=== PATIENT | male | born 1960 | race Caucasian/White ===

== ENCOUNTER 2017-06-22 11:03 | Inpatient (IN) | payer OTHER ==
[2017-06-22 11:10] VITALS: BMI 29.0
--- NOTE | 2017-06-22 14:13 | HP ---
COWS - Scale Resting Pulse: 0= [place] 80 or Below Sweatin=Flushed/Facial Moisture Restless Observation: 1= Difficult to Sit Still Pupil Size: 1= Pupils >than Normal Bone or Joint Aches: 2= Severe Diffuse Aches Runny Nose/ Eye Tearin= None GI Upset > 30mins: 2= Nausea/Diarrhea Tremor Observation: 2= Slight Tremor Visible Yawning Observation: 0= None Anxiety or Irritability: 2=Irritable/Anxious Goose Flesh Skin: 0=Smooth Skin COWS Score: 12 CIWA Score - CIWA Score Nausea/Vomitin Muscle Tremors: 2 Anxiety: 3 Agitation: 1-Slight > Activity Paroxysmal Sweats: 2 Orientation: 1-Uncertain about Date Tacttile Disturbances: 1-Very Mild Itch/Numbness Auditory Disturbances: 1-Very Mild Visual Disturbances: 0-None Headache: 0-None Present CIWA-Ar Total Score: 13 Admission [facility] Chief Complaint: ETOH/Heroin withdrawal symptoms. Allergies/Adverse Reactions: Allergies Allergy/AdvReac Type Severity Reaction Status Date / Time No Known Allergies Allergy Verified 06/22/17 11:56 History of Present Illness: Pt presents with ETOH/Heroin withdrawal symptoms. Pt started using heroin/ETOH/ cocaine at 31 years old when he moved to [place]. Sniffs 6-7 bags of heroin daily- , sniffs 2 gram of cocaine daily, and 2 Pints of vodka daily. Currently in [facility] with [facility]. Reports dose of methadone 45mg. Was dosed today. Still pending verification. Has history of asthma, anxiety and depression. Denies having seizures from ETOH use/withdrawal. Last dose of heroin, cocaine and ETOH at 3am. Attempted detox years ago but unsure where. Denies SI/HI and suicide attempts. Feels depressed due to loss of one year ago. Exam Limitations: No Limitations - Ebola screening Have you traveled outside of the country in the last 21 days: No Have you had contact with anyone from an Ebola affected area: No Have you been sick,other than usual withdrawal symptoms: No Do you have a fever: No - Review of Systems Constitutional: Night Sweats, Changes in sleep, Unexplained wgt Loss EENT: reports: No Symptoms Reported Respiratory: reports: No Symptoms reported Cardiac: reports: No Symptoms Reported GI: reports: Diarrhea, Nausea, Poor Fluid Intake, Abdominal cramping : reports: No Symptoms Reported Musculoskeletal: reports: Back Pain, Joint Pain, Muscle Pain Integumentary: reports: Flushing, Sweating Neuro: reports: Numbness, Tremors Endocrine: reports: Unexplained Weight Loss Hematology: reports: No Symptoms Reported Psychiatric: reports: Anxious, Depressed Patient History - Patient Medical History Hx Anemia: No Hx Asthma: Yes Hx Chronic Obstructive Pulmonary Disease (COPD): No Hx Cancer: No Hx Cardiac Disorders: No Hx Congestive Heart Failure: No Hx Hypertension: No Hx Hypercholesterolemia: No Hx Pacemaker: No HX Cerebrovascular Accident: No Hx Seizures: No Hx Dementia: No Hx Diabetes: No Hx Gastrointestinal Disorders: No Hx Liver Disease: No Hx Genitourinary Disorders: No Hx Sexually Transmitted Disorders: No Hx Renal Disease (ESRD): No Hx Thyroid Disease: No Hx Human Immunodeficiency Virus (HIV): No Hx Hepatitis C: No Hx Depression: Yes Hx Suicide Attempt: No Hx Bipolar Disorder: No Hx Schizophrenia: No - Patient Surgical History Past Surgical History: No Hx Neurologic Surgery: No Hx Cataract Extraction: No Hx Cardiac Surgery: No Hx Lung Surgery: No Hx Breast Surgery: No Hx Breast Biopsy: No Hx Abdominal Surgery: No Hx Appendectomy: No Hx Cholecystectomy: No Hx Genitourinary Surgery: No Hx Section: No Hx Orthopedic Surgery: No Anesthesia Reaction: No - PPD History Previous Implant?: Yes Documented Results: Negative w/o proof Implanted On Prior R Admission?: No PPD to be Administered?: Yes - Reproductive History Patient : No - Smoking Cessation Smoking history: Never smoked - Substances Abused Cocaine Route: Inhalation Frequency: Daily Amount used: 1-2 GRAMS DAILY ($100) Age of first use: 39 Date of Last Use: 06/21/17 Heroin Route: Inhalation Frequency: Daily Amount used: 5 BAGS DAILY Age of first use: 39 Date of Last Use: 06/21/17 Alcohol Route: Oral Frequency: Daily Amount used: 2 BOTTLES DAILY (VODKA) Age of first use: 18 Date of Last Use: 06/22/17 Crack Route: Inhalation Frequency: Daily Amount used: 3-4 GRAMS DAILY Age of first use: 39 Date of Last Use: 06/21/17 Family Disease History - Family Disease History Family History: Denies Admission Physical Exam BHS - Vital Signs Vital Signs: Vital Signs - 24 hr 06/22/17 11:08 Temperature 97.4 F L Pulse Rate 65 Respiratory 18 Rate Blood Pressure 125/75 - Physical General Appearance: Yes: Disheveled, Sweating, Anxious HEENTM: Yes: EOMI, Hearing grossly Normal, Normocephalic, LINNEA, Pharynx Normal Respiratory: Yes: Chest Non-Tender, Lungs Clear, Normal Breath Sounds, No Respiratory Distress, No Accessory Muscle Use Neck: Yes: Within Normal Limits, No masses,lesions,Nodules, Supple Breast: Yes: Breast Exam Deferred Cardiology: Yes: Regular Rhythm, Regular Rate, S1, S2 Abdominal: Yes: Normal Bowel Sounds, Non Tender, Soft Genitourinary: Yes: Within Normal Limits Back: Yes: Muscle Spasm Musculoskeletal: Yes: Gait Steady, Back pain, Muscle Pain Extremities: Yes: Tremors Neurological: Yes: sample driller II-XII NML intact, Alert, Disoriented (forgetful with month), Depressed Affect Integumentary: Yes: Warm, Erythema, Moist Lymphatic: Yes: Within Normal Limits - Diagnostic (1) Alcohol dependence with uncomplicated withdrawal Current Visit: Yes Status: Acute (2) Uncomplicated opioid dependence Current Visit: Yes Status: Acute (3) Opioid dependence with withdrawal Current Visit: Yes Status: Acute (4) Asthma Current Visit: Yes Status: Acute Qualifiers: Asthma complication type: unspecified (5) Cocaine dependence Current Visit: Yes Status: Acute Qualifiers: Substance use status: with unspecified cocaine-induced disorder Qualified Code(s): F14.29 - Cocaine dependence with unspecified cocaine-induced disorder (6) Depressed affect Current Visit: Yes Status: Acute (7) Anxiety Current Visit: Yes Status: Acute Cleared for Admission [facility] - Detox or Rehab [facility] Level of Care: Medically Managed Detox Regimen/Protocol: Librium [facility] Breath Alcohol Content Breath Alcohol Content: 0 Urine Drug Screen - Results Drug Screen Negative: No Urine Drug Screen Results: ELAN-Cocaine, OPI-Opiates, MTD-Methadone Inpatient Rehab Admission - Initial Determination Are CD services needed?: Yes Free of communicable disease: Yes Not in need of hospitalization: Yes - Rehab Admission Criteria Previous failed treatment: Yes Poor recovery environment: Yes Comorbidities: Yes Lacks judgement: Yes
[2017-06-22] MEDS ORDERED: MAGNESIUM HYDROX 2400MG/30ML ORAL SUSPENSION 30 ML CUP PO PRN (14:24)
[2017-06-22] MEDS ORDERED: hydrOXYzine PAMOATE 50 MG CAPSULE (FP) PO PRN (14:24)
[2017-06-22] MEDS ORDERED: MAG HYDROX/AL HYDROX/SIMETH 30 ML UNIT-DOSE CUP PO PRN (14:24)
[2017-06-22] MEDS ORDERED: P-EPHED 60MG/TRIPROLIDI 2.5MG TABLET PO PRN (14:24)
[2017-06-22] MEDS ORDERED: MENTHOL/PHENOL 1 EACH UD MM PRN (14:24)
[2017-06-22] MEDS ORDERED: LOPERAMIDE HCL 2 MG CAPSULE PO PRN (14:24)
[2017-06-22] MEDS ORDERED: guaiFENesin/D-METHORPHAN HB 10 ML UNIT-DOSE CUPS PO PRN (14:24)
[2017-06-22] MEDS ORDERED: MAGNESIUM CITRATE 300 ML BOTTLE PO PRN (14:24)
[2017-06-22] MEDS ORDERED: chlordiazePOXIDE HCL 25 MG CAPSULE PO PRN (14:27)
[2017-06-22] MEDS ORDERED: ALBUTEROL SO4 18 GM HFA INHALER IH PRN (14:27)
[2017-06-22] MEDS ORDERED: chlordiazePOXIDE HCL 25 MG CAPSULE PO ONE (14:50)
[2017-06-22] MEDS: chlordiazePOXIDE HCL 25 MG CAPSULE PO SCH ×2 (17:37→22:35)
--- NOTE | 2017-06-22 18:26 | CONSULT ---
[facility] Psychiatric Consult - Data Date of interview: 06/22/17 Admission source: [facility] Identifying data: First admission to [facility] for this 56 y/o male seeking detox treatment on for alcohol,heroin and cocaine (crack) dependence.Patient is ,a father of twelve,homeless,unemployed and supported on SSI benefits. Substance Abuse History: Confirmed by patient in this session.Details in current [facility] report : Smoking history: Never smoked. - Substances Abused. Cocaine. Route: Inhalation. Frequency: Daily. Amount used: 1-2 GRAMS DAILY ($ 100). Age of first use: 39. Date of Last Use: 06/21/17. Heroin. Route: Inhalation. Frequency: Daily. Amount used: 5 BAGS DAILY. Age of first use: 39. Date of Last Use: 06/21/17. Alcohol. Route: Oral. Frequency: Daily. Amount used: 2 BOTTLES DAILY (VODKA). Age of first use: 18. Date of Last Use: 06/22/17. Crack. Route: Inhalation. Frequency: Daily. Amount used: 3-4 GRAMS DAILY. Age of first use: 39. Date of Last Use: 06/21/17 Medical History: Bronchial asthma. Psychiatric History: Patient admits to a history of two hospitalizations ( [facility]).Diagnosed with Bipolar Disorder.Prescribed seroquel 50 mg/hs + ambien 10 mg/hs.Mr Elizabeth is currently on methadone maintenance at [facility] (45 mg/day) in the [place].Patient denies history of suicide attempts. Physical/Sexual Abuse/Trauma History: Patient denies. Additional Comment: Urine Drug Screen Results: ELAN-Cocaine, OPI-Opiates, MTD- Methadone.Noted. Mental Status Exam - Mental Status Exam Alert and Oriented to: Time, Place, Person Cognitive Function: Good Patient Appearance: Well Groomed Mood: Nervous, Withdrawn Affect: Mood Congruent Patient Behavior: Fatigued, Appropriate, Cooperative Speech Pattern: Clear, Appropriate Voice Loudness: Normal Thought Process: Intact, Goal Oriented Thought Disorder: Not Present Hallucinations: Denies Suicidal Ideation: Denies Homicidal Ideation: Denies Insight/Judgement: Poor Sleep: Poorly, Difficulty falling asleep Appetite: Good Muscle strength/Tone: Normal Gait/Station: Normal Psychiatric Findings - Problem List ([place] 1, 2,3) (1) Opioid dependence with withdrawal Current Visit: Yes Status: Acute (2) Alcohol dependence with uncomplicated withdrawal Current Visit: Yes Status: Acute (3) Cocaine dependence Current Visit: Yes Status: Acute Qualifiers: Substance use status: with unspecified cocaine-induced disorder Qualified Code(s): F14.29 - Cocaine dependence with unspecified cocaine-induced disorder (4) Substance induced mood disorder Current Visit: Yes Status: Acute (5) Insomnia Current Visit: Yes Status: Acute - Initial Treatment Plan Initial Treatment Plan: Psychoeducation.Sleep hygiene.Detoxification in progress.Medications : seroquel 50 mg po hs.Zolpidem is withdrawn (for the time being).Side effects/benefits of seroquel discussed with the patient.Mr Elizabeth is agreeable to this careplan.Observation.
[2017-06-22 18:39] LABS: URINE APPEARANCE TURBID; URINE BILIRUBIN NEGATIVE (<2.0 mg/dL); URINE BLOOD 1+ (NEGATIVE); URINE COLOR AMBER; URINE GLUCOSE (UA) NEGATIVE (NEGATIVE); URINE KETONE NEGATIVE (NEGATIVE); URINE LEUK ESTERASE NEGATIVE (NEGATIVE); URINE NITRITE NEGATIVE (NEGATIVE); URINE PROTEIN NEGATIVE (NEGATIVE); URINE UROBILINOGEN NEGATIVE mg/dL (0.2-1.0)
[2017-06-22 19:20] LABS: EPI CELLS RARE /HPF (FEW); URINE BACTERIA RARE /hpf (NONE SEEN); URINE MUCUS FEW
[2017-06-22] MEDS ORDERED: MELATONIN 5 MG TABLETS PO PRN (22:00)
[2017-06-22] MEDS: THIAMINE HCL 100 MG TABLET (FP) PO SCH (22:35)
[2017-06-22] MEDS: QUEtiapine FUMARATE 50 MG TABLET PO SCH (22:35)
[2017-06-23] MEDS: chlordiazePOXIDE HCL 25 MG CAPSULE PO SCH ×4 (05:48→22:28)
[2017-06-23] MEDS ORDERED: METHADONE HCL 40 MG DISPERSABLE TABLET PO SCH (09:30)
--- NOTE | 2017-06-23 09:52 | EKG ---
Test Reason : Blood Pressure : / mmHG Vent. Rate : 063 BPM Atrial Rate : 063 BPM P-R Int : 128 ms QRS Dur : 084 ms QT Int : 406 ms P-R-T Axes : 070 047 040 degrees QTc Int : 415 ms NORMAL SINUS RHYTHM NORMAL ECG NO PREVIOUS ECGS AVAILABLE Confirmed by NAOMY MENDOZA, MILDRED ([id number]) on 06/23/2017 9:51:47 AM Referred By: Confirmed By:MILDRED MORALEZ MD
[2017-06-23] MEDS ORDERED: METHADONE HCL 10 MG TABLET PO SCH (10:00)
[2017-06-23 10:04] LABS: HEMATOCRIT 41.9 % (35.4-49); HEMOGLOBIN 14.2 GM/dL (11.7-16.9); MCH 32.3 pg (25.7-33.7); MEAN PLT VOLUME 9.3 fl (7.5-11.1); PLATELET COUNT 219 K/MM3 (134-434); RBC 4.41 M/mm3 (4.00-5.60); RDW 13.4 % (11.9-15.9); WHITE BLOOD COUNT 7.6 K/mm3 (4.0-10.0)
[2017-06-23 10:20] LABS: ALBUMIN 4.1 g/dl (3.4-5.0); ANION GAP 4 (8-16); BILIRUBIN,TOTAL 0.4 mg/dL (0.2-1.0); BLOOD UREA NITROGEN 16 mg/dL (7-18); CALCIUM 8.8 mg/dL (8.5-10.1); CHLORIDE 104 mmol/L (98-107); CO2 32 mmol/L (21-32); CREATININE 0.8 mg/dL (0.7-1.3); GLUCOSE,RANDOM 76 mg/dL (74-106); POTASSIUM 4.2 mmol/L (3.5-5.1); SGOT/AST 19 U/L (15-37); SGPT/ALT 22 U/L (12-78); SODIUM 140 mmol/L (136-145); TOT PROT 7.2 g/dl (6.4-8.2)
[2017-06-23 10:21] LABS: ALK PHOS 67 U/L (45-117)
[2017-06-23] MEDS ORDERED: METHADONE HCL 40 MG DISPERSABLE TABLET ONE (11:24)
[2017-06-23] MEDS ORDERED: METHADONE HCL 5 MG TABLET ONE (11:24)
[2017-06-23] MEDS: METHADONE 40 MG, METHADONE 5 MG PO SCH (11:26)
[2017-06-23] MEDS: PRENATAL VITAMINS W/ FOLIC ACID TABLET (FP) PO SCH (11:27)
--- NOTE | 2017-06-23 14:31 | PN ---
[facility] CIWA - CIWA Score Nausea/Vomitin-No Nausea/No Vomiting Muscle Tremors: 2 Anxiety: 4-Mod. Anxious/Guarded Agitation: 4-Moderately Restless Paroxysmal Sweats: 3 Orientation: 0-Oriented Tacttile Disturbances: 2-Mild Itch/Numbness/Burn Auditory Disturbances: 0-None Visual Disturbances: 2-Mild Sensitivity Headache: 0-None Present CIWA-Ar Total Score: 17 S COWS - Scale Resting Pulse: 0= [place] 80 or Below Sweatin= Chills/Flushing Restless Observation: 1= Difficult to Sit Still Pupil Size: 0= Normal to Room Light Bone or Joint Aches: 0= None Runny Nose/ Eye Tearin= None GI Upset > 30mins: 1= Stomach Cramp Tremor Observation of Outstretched Hands: 2= Slight Tremor Visible Yawning Observation: 1= 1-2x During Session Anxiety or Irritability: 2=Irritable/Anxious Goose Flesh Skin: 3=Piloerection COWS Score: 11 S Progress Note (SOAP) Subjective: Fatigue, Sweating, Anxious. Objective: PATIENT A & O X 3, OBSERVED AMBULATING ON UNIT. NO ACUTE DISTRESS. 06/23/17 14:32 Vital Signs Temperature 96.1 F L 06/23/17 14:09 Pulse Rate 75 06/23/17 14:09 Respiratory Rate 18 06/23/17 14:09 Blood Pressure 116/69 06/23/17 14:09 O2 Sat by Pulse Oximetry (%) Laboratory Tests 06/22/17 06/23/17 06/23/17 15:00 06:00 06:00 WBC 7.6 RBC 4.41 Hgb 14.2 Hct 41.9 MCV 95.0 MCH 32.3 MCHC 34.0 RDW 13.4 Plt Count 219 MPV 9.3 Sodium 140 Potassium 4.2 Chloride 104 Carbon Dioxide 32 Anion Gap 4 L BUN 16 Creatinine 0.8 Creat Clearance w eGFR > 60 Random Glucose 76 Calcium 8.8 Total Bilirubin 0.4 AST 19 ALT 22 Alkaline Phosphatase 67 Total Protein 7.2 Albumin 4.1 Urine Color Trina Urine Appearance Turbid Urine pH 5.0 Ur Specific [place] 1.024 Urine Protein Negative Urine Glucose (UA) Negative Urine Ketones Negative Urine Blood 1+ H Urine Nitrite Negative Urine Bilirubin Negative Urine Urobilinogen Negative Ur Leukocyte Esterase Negative Urine WBC (Auto) 2 Urine RBC (Auto) 2 Ur Epithelial Cells Rare Urine Bacteria Rare Urine Mucus Few RPR Titer HIV 1&2 Antibody Screen HIV P24 Antigen 06/23/17 06/23/17 06:00 06:00 WBC RBC Hgb Hct MCV MCH MCHC RDW Plt Count MPV Sodium Potassium Chloride Carbon Dioxide Anion Gap BUN Creatinine Creat Clearance w eGFR Random Glucose Calcium Total Bilirubin AST ALT Alkaline Phosphatase Total Protein Albumin Urine Color Urine Appearance Urine pH Ur Specific [place] Urine Protein Urine Glucose (UA) Urine Ketones Urine Blood Urine Nitrite Urine Bilirubin Urine Urobilinogen Ur Leukocyte Esterase Urine WBC (Auto) Urine RBC (Auto) Ur Epithelial Cells Urine Bacteria Urine Mucus RPR Titer Nonreactive HIV 1&2 Antibody Screen Negative HIV P24 Antigen Negative LABS NOTED. HCV AB RESULT PENDING. 06/23/17 14:34 Assessment: 06/23/17 14:32 WITHDRAWAL SYMPTOMS. Plan: CONTINUE DETOX. INCREASE DAILY PO FLUID INTAKE.
[2017-06-23] MEDS: QUEtiapine FUMARATE 50 MG TABLET PO SCH (22:28)
[2017-06-23] MEDS: THIAMINE HCL 100 MG TABLET (FP) PO SCH (22:28)
[2017-06-24] MEDS ORDERED: METHADONE HCL 5 MG TABLET ONE (03:52)
[2017-06-24] MEDS ORDERED: METHADONE HCL 40 MG DISPERSABLE TABLET ONE (03:52)
[2017-06-24] MEDS: chlordiazePOXIDE HCL 25 MG CAPSULE PO SCH ×2 (06:13→10:07)
[2017-06-24] MEDS: METHADONE 40 MG, METHADONE 5 MG PO SCH (06:13)
[2017-06-24] MEDS: PRENATAL VITAMINS W/ FOLIC ACID TABLET (FP) PO SCH (10:07)
--- NOTE | 2017-06-24 14:32 | PN ---
[facility] CIWA - CIWA Score Nausea/Vomitin-Int. Nausea w/Dry Heave Muscle Tremors: 3 Anxiety: 4-Mod. Anxious/Guarded Agitation: 4-Moderately Restless Paroxysmal Sweats: 3 Orientation: 0-Oriented Tacttile Disturbances: 0-None Auditory Disturbances: 0-None Visual Disturbances: 0-None Headache: 1-Very Mild CIWA-Ar Total Score: 19 BHS Progress Note (SOAP) Subjective: Anxious, sweating, interrupted sleep Objective: 06/24/17 14:29 Last Vital Signs Temp Pulse Resp BP Pulse Ox 98.5 F 74 18 104/60 06/24/17 13:44 06/24/17 13:44 06/24/17 13:44 06/24/17 13:44 Laboratory Tests 06/22/17 06/22/17 06/23/17 06:00 15:00 06:00 WBC 7.6 RBC 4.41 Hgb 14.2 Hct 41.9 MCV 95.0 MCH 32.3 MCHC 34.0 RDW 13.4 Plt Count 219 MPV 9.3 Sodium Potassium Chloride Carbon Dioxide Anion Gap BUN Creatinine Creat Clearance w eGFR Random Glucose Calcium Total Bilirubin AST ALT Alkaline Phosphatase Total Protein Albumin Urine Color Trina Urine Appearance Turbid Urine pH 5.0 Ur Specific [place] 1.024 Urine Protein Negative Urine Glucose (UA) Negative Urine Ketones Negative Urine Blood 1+ H Urine Nitrite Negative Urine Bilirubin Negative Urine Urobilinogen Negative Ur Leukocyte Esterase Negative Urine WBC (Auto) 2 Urine RBC (Auto) 2 Ur Epithelial Cells Rare Urine Bacteria Rare Urine Mucus Few RPR Titer Hep C Ab Diagnostic <0.1 Liver Fibrosis Interp HIV 1&2 Antibody Screen HIV P24 Antigen 06/23/17 06/23/17 06/23/17 06:00 06:00 06:00 WBC RBC Hgb Hct MCV MCH MCHC RDW Plt Count MPV Sodium 140 Potassium 4.2 Chloride 104 Carbon Dioxide 32 Anion Gap 4 L BUN 16 Creatinine 0.8 Creat Clearance w eGFR > 60 Random Glucose 76 Calcium 8.8 Total Bilirubin 0.4 AST 19 ALT 22 Alkaline Phosphatase 67 Total Protein 7.2 Albumin 4.1 Urine Color Urine Appearance Urine pH Ur Specific [place] Urine Protein Urine Glucose (UA) Urine Ketones Urine Blood Urine Nitrite Urine Bilirubin Urine Urobilinogen Ur Leukocyte Esterase Urine WBC (Auto) Urine RBC (Auto) Ur Epithelial Cells Urine Bacteria Urine Mucus RPR Titer Nonreactive Hep C Ab Diagnostic Liver Fibrosis Interp HIV 1&2 Antibody Screen Negative HIV P24 Antigen Negative Labs reviewed: UA 1+ blood Assessment: 06/24/17 14:31 Withdrawal symptoms Noted with microscopic hematuria Plan: Continue detox Microscopic hematuria: encouraged to drink lots of water for hydration, repeat UA
[2017-06-24] MEDS: IBUPROFEN 400 MG TABLET (FP) PO PRN (17:38)
[2017-06-24] MEDS: chlordiazePOXIDE 5 MG CAPSULE PO SCH ×2 (17:40→22:36)
[2017-06-24] MEDS: QUEtiapine FUMARATE 50 MG TABLET PO SCH (22:36)
[2017-06-24] MEDS: THIAMINE HCL 100 MG TABLET (FP) PO SCH (22:36)
[2017-06-24] MEDS: ACETAMINOPHEN 325 MG TABLET (FP) PO PRN (22:37)
[2017-06-25] MEDS ORDERED: METHADONE HCL 5 MG TABLET ONE (04:27)
[2017-06-25] MEDS ORDERED: METHADONE HCL 40 MG DISPERSABLE TABLET ONE (04:28)
[2017-06-25] MEDS: chlordiazePOXIDE 5 MG CAPSULE PO SCH ×2 (05:32→10:09)
[2017-06-25] MEDS: METHADONE 40 MG, METHADONE 5 MG PO SCH (05:33)
[2017-06-25] MEDS: PRENATAL VITAMINS W/ FOLIC ACID TABLET (FP) PO SCH (10:09)
[2017-06-25 10:47] LABS: URINE APPEARANCE CLEAR; URINE BILIRUBIN NEGATIVE (<2.0 mg/dL); URINE BLOOD NEGATIVE (NEGATIVE); URINE COLOR LTYELLOW; URINE GLUCOSE (UA) NEGATIVE (NEGATIVE); URINE KETONE NEGATIVE (NEGATIVE); URINE LEUK ESTERASE NEGATIVE (NEGATIVE); URINE NITRITE NEGATIVE (NEGATIVE); URINE PROTEIN NEGATIVE (NEGATIVE); URINE UROBILINOGEN NEGATIVE mg/dL (0.2-1.0)
--- NOTE | 2017-06-25 11:08 | PN ---
BHS Progress Note (SOAP) Subjective: ANXIETY,SWEATS,BACK PAIN,FATIGUE. Objective: 06/25/17 11:07 Vital Signs Temperature 98.6 F 06/25/17 09:15 Pulse Rate 70 06/25/17 09:15 Respiratory Rate 20 06/25/17 09:15 Blood Pressure 104/67 06/25/17 09:15 O2 Sat by Pulse Oximetry (%) Laboratory Last Values WBC 7.6 K/mm3 (4.0-10.0) 06/23/17 06:00 RBC 4.41 M/mm3 (4.00-5.60) 06/23/17 06:00 Hgb 14.2 GM/dL (11.7-16.9) 06/23/17 06:00 Hct 41.9 % (35.4-49) 06/23/17 06:00 MCV 95.0 fl (80-96) 06/23/17 06:00 MCH 32.3 pg (25.7-33.7) 06/23/17 06:00 MCHC 34.0 g/dl (32.0-35.9) 06/23/17 06:00 RDW 13.4 % (11.9-15.9) 06/23/17 06:00 Plt Count 219 K/MM3 (134-434) 06/23/17 06:00 MPV 9.3 fl (7.5-11.1) 06/23/17 06:00 Sodium 140 mmol/L (136-145) 06/23/17 06:00 Potassium 4.2 mmol/L (3.5-5.1) 06/23/17 06:00 Chloride 104 mmol/L (98-107) 06/23/17 06:00 Carbon Dioxide 32 mmol/L (21-32) 06/23/17 06:00 Anion Gap 4 (8-16) L 06/23/17 06:00 BUN 16 mg/dL (7-18) 06/23/17 06:00 Creatinine 0.8 mg/dL (0.7-1.3) 06/23/17 06:00 Creat Clearance w eGFR > 60 (>60) 06/23/17 06:00 Random Glucose 76 mg/dL (74-106) 06/23/17 06:00 Calcium 8.8 mg/dL (8.5-10.1) 06/23/17 06:00 Total Bilirubin 0.4 mg/dL (0.2-1.0) 06/23/17 06:00 AST 19 U/L (15-37) 06/23/17 06:00 ALT 22 U/L (12-78) 06/23/17 06:00 Alkaline Phosphatase 67 U/L (45-117) 06/23/17 06:00 Total Protein 7.2 g/dl (6.4-8.2) 06/23/17 06:00 Albumin 4.1 g/dl (3.4-5.0) 06/23/17 06:00 Urine Color Ltyellow 06/25/17 08:00 Urine Appearance Clear 06/25/17 08:00 Urine pH 5.0 (5.0-8.0) 06/25/17 08:00 Ur Specific [place] 1.018 (1.001-1.035) 06/25/17 08:00 Urine Protein Negative (NEGATIVE) 06/25/17 08:00 Urine Glucose (UA) Negative (NEGATIVE) 06/25/17 08:00 Urine Ketones Negative (NEGATIVE) 06/25/17 08:00 Urine Blood Negative (NEGATIVE) 06/25/17 08:00 Urine Nitrite Negative (NEGATIVE) 06/25/17 08:00 Urine Bilirubin Negative (<2.0 mg/dL) 06/25/17 08:00 Urine Urobilinogen Negative mg/dL (0.2-1.0) 06/25/17 08:00 Ur Leukocyte Esterase Negative (NEGATIVE) 06/25/17 08:00 Urine WBC (Auto) 2 /hpf (3-5) 06/22/17 15:00 Urine RBC (Auto) 2 /hpf (0-3) 06/22/17 15:00 Ur Epithelial Cells Rare /HPF (FEW) 06/22/17 15:00 Urine Bacteria Rare /hpf (NONE SEEN) 06/22/17 15:00 Urine Mucus Few 06/22/17 15:00 RPR Titer Nonreactive (NONREACTIVE) 06/23/17 06:00 Hep C Ab Diagnostic <0.1 s/co ratio (0.0-0.9) 06/22/17 06:00 Liver Fibrosis Interp (.) 06/22/17 06:00 HIV 1&2 Antibody Screen Negative 06/23/17 06:00 HIV P24 Antigen Negative 06/23/17 06:00 Assessment: 06/25/17 11:07 WITHDRAWAL SX Plan: CONTINUE DETOX MOTRIN STEPHANIEN
[2017-06-25] MEDS: IBUPROFEN 400 MG TABLET (FP) PO PRN (15:09)
[2017-06-25] MEDS: chlordiazePOXIDE HCL 10 MG CAPSULE PO SCH ×2 (17:09→22:08)
[2017-06-25] MEDS: QUEtiapine FUMARATE 50 MG TABLET PO SCH (22:08)
[2017-06-25] MEDS: THIAMINE HCL 100 MG TABLET (FP) PO SCH (22:08)
[2017-06-26] MEDS ORDERED: METHADONE HCL 5 MG TABLET ONE (04:10)
[2017-06-26] MEDS ORDERED: METHADONE HCL 40 MG DISPERSABLE TABLET ONE (04:10)
[2017-06-26] MEDS: chlordiazePOXIDE HCL 10 MG CAPSULE PO SCH ×2 (05:23→10:41)
[2017-06-26] MEDS: METHADONE 40 MG, METHADONE 5 MG PO SCH (05:23)
[2017-06-26] MEDS: ACETAMINOPHEN 325 MG TABLET (FP) PO PRN (06:33)
[2017-06-26 09:50] VITALS: BP 112/71; PULSE 87; TEMP 96.3
--- NOTE | 2017-06-26 10:28 | PN ---
BHS Progress Note (SOAP) Subjective: DETOX COMPLETED. ALERT O X 3. NAD. REFERRED TO [facility] FOR [facility]AB, Objective: 06/26/17 10:27 Vital Signs Temperature 96.3 F L 06/26/17 09:48 Pulse Rate 87 06/26/17 09:48 Respiratory Rate 18 06/26/17 09:48 Blood Pressure 112/71 06/26/17 09:48 O2 Sat by Pulse Oximetry (%) Laboratory Tests 06/22/17 06/22/17 06/23/17 06:00 15:00 06:00 WBC 7.6 RBC 4.41 Hgb 14.2 Hct 41.9 MCV 95.0 MCH 32.3 MCHC 34.0 RDW 13.4 Plt Count 219 MPV 9.3 Sodium Potassium Chloride Carbon Dioxide Anion Gap BUN Creatinine Creat Clearance w eGFR Random Glucose Calcium Total Bilirubin AST ALT Alkaline Phosphatase Total Protein Albumin Urine Color Trina Urine Appearance Turbid Urine pH 5.0 Ur Specific [place] 1.024 Urine Protein Negative Urine Glucose (UA) Negative Urine Ketones Negative Urine Blood 1+ H Urine Nitrite Negative Urine Bilirubin Negative Urine Urobilinogen Negative Ur Leukocyte Esterase Negative Urine WBC (Auto) 2 Urine RBC (Auto) 2 Ur Epithelial Cells Rare Urine Bacteria Rare Urine Mucus Few RPR Titer Hep C Ab Diagnostic <0.1 Liver Fibrosis Interp HIV 1&2 Antibody Screen HIV P24 Antigen 06/23/17 06/23/17 06/23/17 06:00 06:00 06:00 WBC RBC Hgb Hct MCV MCH MCHC RDW Plt Count MPV Sodium 140 Potassium 4.2 Chloride 104 Carbon Dioxide 32 Anion Gap 4 L BUN 16 Creatinine 0.8 Creat Clearance w eGFR > 60 Random Glucose 76 Calcium 8.8 Total Bilirubin 0.4 AST 19 ALT 22 Alkaline Phosphatase 67 Total Protein 7.2 Albumin 4.1 Urine Color Urine Appearance Urine pH Ur Specific [place] Urine Protein Urine Glucose (UA) Urine Ketones Urine Blood Urine Nitrite Urine Bilirubin Urine Urobilinogen Ur Leukocyte Esterase Urine WBC (Auto) Urine RBC (Auto) Ur Epithelial Cells Urine Bacteria Urine Mucus RPR Titer Nonreactive Hep C Ab Diagnostic Liver Fibrosis Interp HIV 1&2 Antibody Screen Negative HIV P24 Antigen Negative 06/25/17 08:00 WBC RBC Hgb Hct MCV MCH MCHC RDW Plt Count MPV Sodium Potassium Chloride Carbon Dioxide Anion Gap BUN Creatinine Creat Clearance w eGFR Random Glucose Calcium Total Bilirubin AST ALT Alkaline Phosphatase Total Protein Albumin Urine Color Ltyellow Urine Appearance Clear Urine pH 5.0 Ur Specific [place] 1.018 Urine Protein Negative Urine Glucose (UA) Negative Urine Ketones Negative Urine Blood Negative Urine Nitrite Negative Urine Bilirubin Negative Urine Urobilinogen Negative Ur Leukocyte Esterase Negative Urine WBC (Auto) Urine RBC (Auto) Ur Epithelial Cells Urine Bacteria Urine Mucus RPR Titer Hep C Ab Diagnostic Liver Fibrosis Interp HIV 1&2 Antibody Screen HIV P24 Antigen Assessment: 06/26/17 10:27 MEDICALLY STABLE Plan: D/C PT TODAY TO REHAB
--- NOTE | 2017-06-26 10:31 | DS ---
[facility] Detox Discharge Summary Admission Date: 06/22/17 Discharge Date: 06/26/17 - History Present History: Alcohol Dependence, Cocaine Dependence, Opioid Dependence Additional Comments: DETOX COMPLETED. ALERT O X 3. NAD. PT REPORTS HE HAS PCP AT [facility] Pertinent Past History: PLEASE SEE DX BELOW - Physical Exam Results Vital Signs: Vital Signs Temperature 96.3 F L 06/26/17 09:48 Pulse Rate 87 06/26/17 09:48 Respiratory Rate 18 06/26/17 09:48 Blood Pressure 112/71 06/26/17 09:48 O2 Sat by Pulse Oximetry (%) Pertinent Admission Physical Exam Findings: WITHDRAWAL S Laboratory Tests 06/22/17 06/22/17 06/23/17 06:00 15:00 06:00 WBC 7.6 RBC 4.41 Hgb 14.2 Hct 41.9 MCV 95.0 MCH 32.3 MCHC 34.0 RDW 13.4 Plt Count 219 MPV 9.3 Sodium Potassium Chloride Carbon Dioxide Anion Gap BUN Creatinine Creat Clearance w eGFR Random Glucose Calcium Total Bilirubin AST ALT Alkaline Phosphatase Total Protein Albumin Urine Color Trina Urine Appearance Turbid Urine pH 5.0 Ur Specific Gilliam 1.024 Urine Protein Negative Urine Glucose (UA) Negative Urine Ketones Negative Urine Blood 1+ H Urine Nitrite Negative Urine Bilirubin Negative Urine Urobilinogen Negative Ur Leukocyte Esterase Negative Urine WBC (Auto) 2 Urine RBC (Auto) 2 Ur Epithelial Cells Rare Urine Bacteria Rare Urine Mucus Few RPR Titer Hep C Ab Diagnostic <0.1 Liver Fibrosis Interp HIV 1&2 Antibody Screen HIV P24 Antigen 06/23/17 06/23/17 06/23/17 06:00 06:00 06:00 WBC RBC Hgb Hct MCV MCH MCHC RDW Plt Count MPV Sodium 140 Potassium 4.2 Chloride 104 Carbon Dioxide 32 Anion Gap 4 L BUN 16 Creatinine 0.8 Creat Clearance w eGFR > 60 Random Glucose 76 Calcium 8.8 Total Bilirubin 0.4 AST 19 ALT 22 Alkaline Phosphatase 67 Total Protein 7.2 Albumin 4.1 Urine Color Urine Appearance Urine pH Ur Specific Gilliam Urine Protein Urine Glucose (UA) Urine Ketones Urine Blood Urine Nitrite Urine Bilirubin Urine Urobilinogen Ur Leukocyte Esterase Urine WBC (Auto) Urine RBC (Auto) Ur Epithelial Cells Urine Bacteria Urine Mucus RPR Titer Nonreactive Hep C Ab Diagnostic Liver Fibrosis Interp HIV 1&2 Antibody Screen Negative HIV P24 Antigen Negative 06/25/17 08:00 WBC RBC Hgb Hct MCV MCH MCHC RDW Plt Count MPV Sodium Potassium Chloride Carbon Dioxide Anion Gap BUN Creatinine Creat Clearance w eGFR Random Glucose Calcium Total Bilirubin AST ALT Alkaline Phosphatase Total Protein Albumin Urine Color Ltyellow Urine Appearance Clear Urine pH 5.0 Ur Specific Gilliam 1.018 Urine Protein Negative Urine Glucose (UA) Negative Urine Ketones Negative Urine Blood Negative Urine Nitrite Negative Urine Bilirubin Negative Urine Urobilinogen Negative Ur Leukocyte Esterase Negative Urine WBC (Auto) Urine RBC (Auto) Ur Epithelial Cells Urine Bacteria Urine Mucus RPR Titer Hep C Ab Diagnostic Liver Fibrosis Interp HIV 1&2 Antibody Screen HIV P24 Antigen - Treatment Hospital Course: Detox Protocol Followed, Detoxed Safely, Responded well, Discharged Condition Good, Rehab Referral Accepted Patient has Accepted a Rehab Referral to: [facility] - Medication Discharge Medications: Ambulatory Orders Albuterol Sulfate Inhaler - [Ventolin Hfa Inhaler -] 1 - 2 inh PO Q4H 06/22/17 Zolpidem Tartrate [Ambien] 10 mg PO DAILY 06/22/17 clonazePAM [Klonopin -] 1 mg PO TID 06/22/17 Quetiapine Fumarate [Seroquel -] 50 mg PO HS #30 tablet 06/23/17 - Diagnosis (1) Alcohol dependence with uncomplicated withdrawal Current Visit: Yes Status: Acute (2) Asthma Current Visit: Yes Status: Chronic Qualifiers: Asthma severity: mild Asthma persistence: intermittent Asthma complication type: unspecified Qualified Code(s): J45.20 - Mild intermittent asthma, uncomplicated (3) Insomnia Current Visit: Yes Status: Acute (4) Opioid dependence with withdrawal Current Visit: Yes Status: Acute (5) Cocaine dependence Current Visit: Yes Status: Acute Qualifiers: Substance use status: with unspecified cocaine-induced disorder Qualified Code(s): F14.29 - Cocaine dependence with unspecified cocaine-induced disorder (6) Substance induced mood disorder Current Visit: Yes Status: Acute - AMA Did Patient Leave Against Medical Advice: No
[2017-06-26] MEDS: PRENATAL VITAMINS W/ FOLIC ACID TABLET (FP) PO SCH (10:40)
== END 2017-06-26 12:46 | disposition other institution (70) | DRG 773 ==
LOC: YASAS 11:03 → Y3N 14:45
PROVIDERS: ADMIT Internal Medicine; ATTEND Internal Medicine
PROC: HZ2ZZZZ Detoxification Services for Substance Abuse Treatment (ICD-10-PCS; principal; 2017-06-22)
DX: F11.23 Opioid dependence with withdrawal (principal); F10.230 Alcohol dependence with withdrawal, uncomplicated; F14.20 Cocaine dependence, uncomplicated; F19.24 Other psychoactive substance dependence with psychoactive substance-induced mood disorder; F41.9 Anxiety disorder, unspecified; G47.00 Insomnia, unspecified; R31.29 Other microscopic hematuria; R45.89 Other symptoms and signs involving emotional state; J45.20 Mild intermittent asthma, uncomplicated
CPT/HCPCS: 36415; 80053; 81003; 81015; 85027; 86593; 87389; 93005; 93010

== ENCOUNTER 2017-06-26 13:11 | Inpatient (IN) | payer OTHER ==
[2017-06-26] MEDS ORDERED: guaiFENesin/D-METHORPHAN HB 10 ML UNIT-DOSE CUPS PO PRN (13:41)
[2017-06-26] MEDS ORDERED: hydrOXYzine PAMOATE 50 MG CAPSULE (FP) PO PRN (13:41)
[2017-06-26] MEDS ORDERED: MAGNESIUM CITRATE 300 ML BOTTLE PO PRN (13:41)
[2017-06-26] MEDS ORDERED: LOPERAMIDE HCL 2 MG CAPSULE PO PRN (13:41)
[2017-06-26] MEDS ORDERED: MENTHOL/PHENOL 1 EACH UD MM PRN (13:41)
[2017-06-26] MEDS ORDERED: P-EPHED 60MG/TRIPROLIDI 2.5MG TABLET PO PRN (13:41)
[2017-06-26] MEDS ORDERED: MAGNESIUM HYDROX 2400MG/30ML ORAL SUSPENSION 30 ML CUP PO PRN (13:41)
--- NOTE | 2017-06-26 13:43 | HP ---
[facility] Rehab Assess/Revision - Admission History Admitted to Rehab from: [facility] Date of Admission to Rehab: 06/26/17 - Findings Detox History & Physical reviewed: Yes Concur with findings: Yes Inpatient Rehab Admission - Initial Determination Are CD services needed?: Yes Free of communicable disease: Yes Not in need of hospitalization: Yes - Rehab Admission Criteria Previous failed treatment: Yes Poor recovery environment: Yes Comorbidities: Yes Lacks judgement: Yes Patient is meeting Inpatient Rehab admission criteria:: Yes
[2017-06-26] MEDS ORDERED: ALBUTEROL SO4 18 GM HFA INHALER IH SCH (13:45)
[2017-06-26] MEDS: ACETAMINOPHEN 325 MG TABLET (FP) PO PRN (14:39)
[2017-06-26] MEDS: MAG HYDROX/AL HYDROX/SIMETH 30 ML UNIT-DOSE CUP PO PRN (16:51)
[2017-06-26] MEDS: THIAMINE HCL 100 MG TABLET (FP) PO SCH (21:36)
[2017-06-26] MEDS: MELATONIN 5 MG TABLETS PO PRN (21:37)
[2017-06-27] MEDS: IBUPROFEN 400 MG TABLET (FP) PO PRN ×2 (04:57→20:05)
[2017-06-27] MEDS ORDERED: METHADONE HCL 40 MG DISPERSABLE TABLET ONE (05:31)
[2017-06-27] MEDS ORDERED: METHADONE HCL 5 MG TABLET ONE (05:31)
[2017-06-27] MEDS ORDERED: METHADONE HCL 10 MG TABLET PO SCH (06:00)
[2017-06-27] MEDS: METHADONE 40 MG, METHADONE 5 MG PO SCH (06:53)
[2017-06-27] MEDS: PRENATAL VITAMINS W/ FOLIC ACID TABLET (FP) PO SCH (10:08)
--- NOTE | 2017-06-27 11:48 | HP ---
Psychiatrist Admission - Data Date of interview: 06/27/17 Admission source: 3N Identifying data: This is the first 5N inpatient rehabilitation admission for this 56 year old male, who is ,a father of twelve(from a different 6 relationships), homeless, unemployed and supported on SSI benefits. Medical History: Asthma, on MMTP 45 mg/daily. Psychiatric History: Patient reports was diagnosed as Bipolar I disorder and was hospitalized twice at [facility], does not remember reasons and dates , currently sees the psychiatrist at his [facility] and on Seroquel 50 mg po hsmg hs and Ambien 10 mg po hs, denies history of suicidal attepmts, sen by and continued medication. Physical/Sexual Abuse/Trauma History: Denies history of sexual, physical and verbal abuse. Vital Signs: Vital Signs - 24 hr 06/26/17 06/26/17 06/26/17 15:12 16:36 16:40 Temperature 98.9 F 98.9 F 98.9 F Pulse Rate 86 86 86 Respiratory 20 18 18 Rate Blood Pressure 136/87 131/81 131/81 06/27/17 06/27/17 00:40 06:41 Temperature 97.9 F Pulse Rate 77 Respiratory 18 18 Rate Blood Pressure 116/75 Allergies/Adverse Reactions: Allergies Allergy/AdvReac Type Severity Reaction Status Date / Time No Known Allergies Allergy Verified 06/26/17 15:11 Date of last physical exam: 06/22/17 Concur with the findings of this exam: Yes - Substance Abuse/Tx History Hx Alcohol Use: Yes Hx Substance Use: Yes Substance Use Type: Alcohol (2 bottles of vodka daily), Cocaine (crack daily 3- 4 gr), Heroin (5 bags daily) Hx Substance Use Treatment: Yes Mental Status Exam - Mental Status Exam Alert and Oriented to: Time, Place, Person Cognitive Function: Good Patient Appearance: Well Groomed Mood: Hopeful Affect: Appropriate, Mood Congruent Patient Behavior: Appropriate, Cooperative Speech Pattern: Clear, Appropriate Voice Loudness: Normal Thought Process: Intact, Goal Oriented Thought Disorder: Not Present Hallucinations: Denies Suicidal Ideation: Denies Homicidal Ideation: Denies Insight/Judgement: Fair Sleep: Fair Appetite: Fair Muscle strength/Tone: Normal Gait/Station: Normal Psychiatric Findings - Problem List ([place] 1, 2,3) (1) Alcohol dependence Current Visit: Yes Status: Acute (2) Cocaine dependence Current Visit: No Status: Acute Qualifiers: Substance use status: with unspecified cocaine-induced disorder Qualified Code(s): F14.29 - Cocaine dependence with unspecified cocaine-induced disorder (3) Opioid dependence on agonist therapy Current Visit: No Status: Acute (4) Bipolar 1 disorder Current Visit: Yes Status: Acute - Initial Treatment Plan Initial Treatment Plan: Will continue Seroquel, monitor progress as needed.
[2017-06-27] MEDS: MAG HYDROX/AL HYDROX/SIMETH 30 ML UNIT-DOSE CUP PO PRN (20:05)
[2017-06-27] MEDS: QUEtiapine FUMARATE 50 MG TABLET PO SCH (21:34)
[2017-06-27] MEDS: MELATONIN 5 MG TABLETS PO PRN (21:34)
[2017-06-27] MEDS: THIAMINE HCL 100 MG TABLET (FP) PO SCH (21:34)
[2017-06-28] MEDS ORDERED: METHADONE HCL 40 MG DISPERSABLE TABLET ONE (04:56)
[2017-06-28] MEDS ORDERED: METHADONE HCL 5 MG TABLET ONE (04:56)
[2017-06-28] MEDS: METHADONE 40 MG, METHADONE 5 MG PO SCH (06:43)
[2017-06-28] MEDS: PRENATAL VITAMINS W/ FOLIC ACID TABLET (FP) PO SCH (10:01)
[2017-06-28] MEDS: IBUPROFEN 400 MG TABLET (FP) PO PRN (15:27)
[2017-06-28] MEDS: QUEtiapine FUMARATE 50 MG TABLET PO SCH (21:45)
[2017-06-28] MEDS: THIAMINE HCL 100 MG TABLET (FP) PO SCH (21:46)
[2017-06-28] MEDS: MAG HYDROX/AL HYDROX/SIMETH 30 ML UNIT-DOSE CUP PO PRN (22:13)
[2017-06-29] MEDS ORDERED: METHADONE HCL 40 MG DISPERSABLE TABLET ONE (05:28)
[2017-06-29] MEDS ORDERED: METHADONE HCL 5 MG TABLET ONE (05:28)
[2017-06-29] MEDS: METHADONE 40 MG, METHADONE 5 MG PO SCH (06:57)
[2017-06-29] MEDS: PRENATAL VITAMINS W/ FOLIC ACID TABLET (FP) PO SCH (10:30)
--- NOTE | 2017-06-29 16:09 | PN ---
[facility] Progress Note Note: Patient seen for scratch on left side of scalp. Small amount of bloody discharge due to scratching. No swelling noted. Will treat scratch with Bacitracin topically daily. Continue to monitor.
[2017-06-29] MEDS: BACITRACIN 0.9 GM PACKET TP SCH (18:16)
[2017-06-29] MEDS: THIAMINE HCL 100 MG TABLET (FP) PO SCH (21:44)
[2017-06-29] MEDS: QUEtiapine FUMARATE 50 MG TABLET PO SCH (21:44)
[2017-06-29] MEDS: MAG HYDROX/AL HYDROX/SIMETH 30 ML UNIT-DOSE CUP PO PRN (21:45)
[2017-06-30] MEDS ORDERED: METHADONE HCL 40 MG DISPERSABLE TABLET ONE (03:28)
[2017-06-30] MEDS ORDERED: METHADONE HCL 5 MG TABLET ONE (03:28)
[2017-06-30] MEDS: METHADONE 40 MG, METHADONE 5 MG PO SCH (06:46)
[2017-06-30] MEDS: BACITRACIN 0.9 GM PACKET TP SCH (10:18)
[2017-06-30] MEDS: PRENATAL VITAMINS W/ FOLIC ACID TABLET (FP) PO SCH (10:18)
[2017-06-30] MEDS: QUEtiapine FUMARATE 50 MG TABLET PO SCH (22:10)
[2017-06-30] MEDS: THIAMINE HCL 100 MG TABLET (FP) PO SCH (22:11)
[2017-07-01] MEDS: MELATONIN 5 MG TABLETS PO PRN (00:24)
[2017-07-01] MEDS ORDERED: METHADONE HCL 5 MG TABLET ONE (03:24)
[2017-07-01] MEDS ORDERED: METHADONE HCL 40 MG DISPERSABLE TABLET ONE (03:25)
[2017-07-01] MEDS: METHADONE 40 MG, METHADONE 5 MG PO SCH (06:48)
[2017-07-01] MEDS: BACITRACIN 0.9 GM PACKET TP SCH (10:08)
[2017-07-01] MEDS: PRENATAL VITAMINS W/ FOLIC ACID TABLET (FP) PO SCH (10:08)
[2017-07-01] MEDS: MAG HYDROX/AL HYDROX/SIMETH 30 ML UNIT-DOSE CUP PO PRN (19:43)
[2017-07-01] MEDS: QUEtiapine FUMARATE 50 MG TABLET PO SCH (21:26)
[2017-07-01] MEDS: THIAMINE HCL 100 MG TABLET (FP) PO SCH (21:26)
[2017-07-02] MEDS ORDERED: METHADONE HCL 5 MG TABLET ONE (03:21)
[2017-07-02] MEDS ORDERED: METHADONE HCL 40 MG DISPERSABLE TABLET ONE (03:22)
[2017-07-02] MEDS: METHADONE 40 MG, METHADONE 5 MG PO SCH (06:06)
[2017-07-02] MEDS: BACITRACIN 0.9 GM PACKET TP SCH (11:00)
[2017-07-02] MEDS: PRENATAL VITAMINS W/ FOLIC ACID TABLET (FP) PO SCH (11:00)
[2017-07-02] MEDS: THIAMINE HCL 100 MG TABLET (FP) PO SCH (21:30)
[2017-07-02] MEDS: QUEtiapine FUMARATE 50 MG TABLET PO SCH (21:30)
[2017-07-03] MEDS ORDERED: METHADONE HCL 10 MG TABLET PO SCH (06:30)
[2017-07-03] MEDS ORDERED: METHADONE HCL 5 MG TABLET ONE (06:40)
[2017-07-03] MEDS: METHADONE 40 MG, METHADONE 5 MG PO SCH (06:41)
[2017-07-03] MEDS ORDERED: METHADONE HCL 40 MG DISPERSABLE TABLET ONE (06:41)
[2017-07-03] MEDS: PRENATAL VITAMINS W/ FOLIC ACID TABLET (FP) PO SCH (10:08)
[2017-07-03] MEDS: BACITRACIN 0.9 GM PACKET TP SCH (10:08)
[2017-07-03] MEDS: ALBUTEROL SO4 18 GM HFA INHALER IH PRN (10:10)
[2017-07-03] MEDS: THIAMINE HCL 100 MG TABLET (FP) PO SCH (21:27)
[2017-07-03] MEDS: QUEtiapine FUMARATE 50 MG TABLET PO SCH (21:27)
[2017-07-04] MEDS: ALBUTEROL SO4 18 GM HFA INHALER IH PRN ×3 (00:03→21:11)
[2017-07-04] MEDS ORDERED: METHADONE HCL 40 MG DISPERSABLE TABLET ONE (05:36)
[2017-07-04] MEDS ORDERED: METHADONE HCL 5 MG TABLET ONE (05:36)
[2017-07-04] MEDS: METHADONE 40 MG, METHADONE 5 MG PO SCH (06:36)
[2017-07-04] MEDS: PRENATAL VITAMINS W/ FOLIC ACID TABLET (FP) PO SCH (09:53)
[2017-07-04] MEDS: BACITRACIN 0.9 GM PACKET TP SCH (09:53)
[2017-07-04] MEDS: THIAMINE HCL 100 MG TABLET (FP) PO SCH (21:11)
[2017-07-04] MEDS: QUEtiapine FUMARATE 50 MG TABLET PO SCH (21:11)
[2017-07-05] MEDS ORDERED: METHADONE HCL 5 MG TABLET ONE (04:53)
[2017-07-05] MEDS ORDERED: METHADONE HCL 40 MG DISPERSABLE TABLET ONE (04:53)
[2017-07-05] MEDS: METHADONE 40 MG, METHADONE 5 MG PO SCH (06:08)
[2017-07-05] MEDS: PRENATAL VITAMINS W/ FOLIC ACID TABLET (FP) PO SCH (09:42)
[2017-07-05] MEDS: BACITRACIN 0.9 GM PACKET TP SCH (09:42)
[2017-07-05] MEDS: ALBUTEROL SO4 18 GM HFA INHALER IH PRN (09:43)
[2017-07-05] MEDS: THIAMINE HCL 100 MG TABLET (FP) PO SCH (21:21)
[2017-07-05] MEDS: QUEtiapine FUMARATE 50 MG TABLET PO SCH (21:21)
[2017-07-06] MEDS ORDERED: METHADONE HCL 5 MG TABLET ONE (03:27)
[2017-07-06] MEDS ORDERED: METHADONE HCL 40 MG DISPERSABLE TABLET ONE (03:27)
[2017-07-06] MEDS: METHADONE 40 MG, METHADONE 5 MG PO SCH (06:13)
[2017-07-06] MEDS: PRENATAL VITAMINS W/ FOLIC ACID TABLET (FP) PO SCH (09:37)
[2017-07-06] MEDS: BACITRACIN 0.9 GM PACKET TP SCH (09:37)
[2017-07-06] MEDS: ACETAMINOPHEN 325 MG TABLET (FP) PO PRN (09:39)
[2017-07-06] MEDS: QUEtiapine FUMARATE 50 MG TABLET PO SCH (21:11)
[2017-07-06] MEDS: THIAMINE HCL 100 MG TABLET (FP) PO SCH (21:11)
[2017-07-07] MEDS ORDERED: METHADONE HCL 5 MG TABLET ONE (05:21)
[2017-07-07] MEDS ORDERED: METHADONE HCL 40 MG DISPERSABLE TABLET ONE (05:22)
[2017-07-07] MEDS: METHADONE 40 MG, METHADONE 5 MG PO SCH (06:33)
[2017-07-07] MEDS: BACITRACIN 0.9 GM PACKET TP SCH (09:42)
[2017-07-07] MEDS: PRENATAL VITAMINS W/ FOLIC ACID TABLET (FP) PO SCH (09:42)
[2017-07-07] MEDS: IBUPROFEN 400 MG TABLET (FP) PO PRN ×2 (11:48→22:34)
[2017-07-07] MEDS: QUEtiapine FUMARATE 50 MG TABLET PO SCH (21:10)
[2017-07-07] MEDS: THIAMINE HCL 100 MG TABLET (FP) PO SCH (21:11)
[2017-07-08] MEDS ORDERED: METHADONE HCL 40 MG DISPERSABLE TABLET ONE (03:03)
[2017-07-08] MEDS ORDERED: METHADONE HCL 5 MG TABLET ONE (03:03)
[2017-07-08] MEDS: METHADONE 40 MG, METHADONE 5 MG PO SCH (06:23)
[2017-07-08] MEDS: ALBUTEROL SO4 18 GM HFA INHALER IH PRN ×2 (08:55→21:11)
[2017-07-08] MEDS: PRENATAL VITAMINS W/ FOLIC ACID TABLET (FP) PO SCH (09:58)
[2017-07-08] MEDS: BACITRACIN 0.9 GM PACKET TP SCH (10:11)
[2017-07-08] MEDS: IBUPROFEN 400 MG TABLET (FP) PO PRN (17:52)
[2017-07-08] MEDS: QUEtiapine FUMARATE 50 MG TABLET PO SCH (21:11)
[2017-07-08] MEDS: THIAMINE HCL 100 MG TABLET (FP) PO SCH (21:11)
[2017-07-09] MEDS ORDERED: METHADONE HCL 5 MG TABLET ONE (02:56)
[2017-07-09] MEDS ORDERED: METHADONE HCL 40 MG DISPERSABLE TABLET ONE (02:57)
[2017-07-09] MEDS: METHADONE 40 MG, METHADONE 5 MG PO SCH (06:18)
[2017-07-09] MEDS: PRENATAL VITAMINS W/ FOLIC ACID TABLET (FP) PO SCH (09:47)
[2017-07-09] MEDS: BACITRACIN 0.9 GM PACKET TP SCH (09:48)
[2017-07-09] MEDS: ALBUTEROL SO4 18 GM HFA INHALER IH PRN (09:48)
--- NOTE | 2017-07-09 12:34 | PN ---
[facility] Progress Note Note: Patient c/o pain and swelling behind left ear. Vital Signs Temperature 96.8 F L 07/09/17 06:52 Pulse Rate 66 07/09/17 06:52 Respiratory Rate 18 07/09/17 06:52 Blood Pressure 114/80 07/09/17 06:52 O2 Sat by Pulse Oximetry (%) Subj: +pain and swelling behind left ear x 3 days. Denies inner ear pain, hearing loss and headache. Obj: General: Alert and oriented x 3. In no acute distress Skin: warm and dry. Afebrile. ENT: Hearing good B/L. Left post auricular abscess. Mild redness. No discharge present. +tenderness. A/P: Abscess to left post auricular area Will treat with Keflex 500mg BID x 7 days APAP prn continued continue to monitor clinically
[2017-07-09] MEDS: CEPHALEXIN MONOHYDRATE 500 MG CAPSULE (UD) PO SCH (21:14)
[2017-07-09] MEDS: QUEtiapine FUMARATE 50 MG TABLET PO SCH (21:14)
[2017-07-09] MEDS: THIAMINE HCL 100 MG TABLET (FP) PO SCH (21:14)
[2017-07-09] MEDS: IBUPROFEN 400 MG TABLET (FP) PO PRN (22:26)
[2017-07-10] MEDS ORDERED: METHADONE HCL 5 MG TABLET ONE (05:59)
[2017-07-10] MEDS ORDERED: METHADONE HCL 40 MG DISPERSABLE TABLET ONE (05:59)
[2017-07-10] MEDS: METHADONE 40 MG, METHADONE 5 MG PO SCH (06:17)
[2017-07-10] MEDS: CEPHALEXIN MONOHYDRATE 500 MG CAPSULE (UD) PO SCH ×2 (09:50→21:08)
[2017-07-10] MEDS: PRENATAL VITAMINS W/ FOLIC ACID TABLET (FP) PO SCH (09:50)
[2017-07-10] MEDS: ACETAMINOPHEN 325 MG TABLET (FP) PO PRN (10:50)
[2017-07-10] MEDS: QUEtiapine FUMARATE 50 MG TABLET PO SCH (21:08)
[2017-07-10] MEDS: THIAMINE HCL 100 MG TABLET (FP) PO SCH (21:08)
[2017-07-10] MEDS: ALBUTEROL SO4 18 GM HFA INHALER IH PRN (21:09)
[2017-07-11] MEDS ORDERED: METHADONE HCL 5 MG TABLET ONE (05:44)
[2017-07-11] MEDS ORDERED: METHADONE HCL 40 MG DISPERSABLE TABLET ONE (05:45)
[2017-07-11 06:33] VITALS: BP 105/74; PULSE 62; TEMP 97.7
[2017-07-11] MEDS: METHADONE 40 MG, METHADONE 5 MG PO SCH (06:40)
--- NOTE | 2017-07-11 09:29 | PN ---
Psychiatric Progress Note Vital Signs: Vital Signs Period Temp Pulse Resp BP Sys/Scott Pulse Ox Last 24 Hr 97.7 F 62 18-18 105/74 Date of Session: 07/11/17 Chief Complaint:: discharge visit HPI: Patient has addressed alcohol cociane dependence, on opiod agonist therapy comorbid bipolar I disorder. Current Medications: Active Medications Generic Name Dose Route Start Last Admin Trade Name Freq PRN Reason Stop Dose Admin Acetaminophen 650 mg 06/26/17 13:41 07/10/17 10:50 Tylenol - PO 650 mg Q4H PRN Administration FEVER Al Hydroxide/Mg Hydroxide 30 ml 06/26/17 13:41 07/01/17 19:43 Mylanta Oral Suspension - PO 30 ml Q6H PRN Administration DYSPEPSIA Albuterol Sulfate 1 puff 06/26/17 14:38 07/10/17 21:09 Ventolin Hfa Inhaler - IH 1 puff Q4H PRN Administration WHEEZING Cephalexin HCl 500 mg 07/09/17 22:00 07/10/17 21:08 Keflex - PO 07/16/17 21:59 500 mg BID THADDEUS Administration Eucalyptus/Menthol/Phenol/Sorbitol 1 each 06/26/17 13:41 Cepastat Lozenge - MM Q4H PRN SORE THROAT Guaifenesin 10 ml 06/26/17 13:41 Robitussin Dm - PO Q6H PRN COUGH Hydroxyzine Pamoate 50 mg 06/26/17 13:41 Vistaril - PO Q4H PRN AGITATION Ibuprofen 400 mg 06/26/17 13:41 07/09/17 22:26 Motrin - PO 400 mg Q6H PRN Administration Pain Level 4-6 Loperamide HCl 4 mg 06/26/17 13:41 Imodium - PO Q6H PRN DIARRHEA Magnesium Citrate 300 ml 06/26/17 13:41 07/01/17 21:28 Citroma - PO 300 ml Q48H PRN Administration CONSTIPATION Magnesium Hydroxide 30 ml 06/26/17 13:41 07/01/17 00:21 Milk Of Magnesia - PO 30 ml DAILY PRN Administration CONSTIPATION Melatonin 5 mg 06/26/17 22:00 07/01/17 00:24 Melatonin PO 5 mg HS PRN Administration INSOMNIA Methadone HCl 40 mg/ Methadone 45 mg 07/10/17 06:45 07/11/17 06:40 HCl 5 mg PO 45 mg DAILY@0600 THADDEUS Administration Multivit/Folic Acid/Iron 1 tab 06/27/17 10:00 07/10/17 09:50 Vitamins (Sjr) - PO 1 tab DAILY THADDEUS Administration Pseudoephedrine/Triprolidine 1 combo 06/26/17 13:41 Actifed - PO TID PRN NASAL CONGESTION Quetiapine Fumarate 50 mg 06/27/17 22:00 07/10/17 21:08 Seroquel - PO 50 mg HS THADDEUS Administration Thiamine HCl 100 mg 06/26/17 22:00 07/10/17 21:08 Vitamin B1 - PO 100 mg HS THADDEUS Administration Current Side Effect: No Lab tests ordered: No Lab tests reviewed: Yes Provider note:: Patient has completed treatment today and met his identified goals, will continue to address his issues at AA meetings. Patient gaine insights into his addiction and motivated to continue maintain abstinence and stay away from "people, places and things". Patient was encouraged utilize all supports available to prevent relapses. He is stable for discharge today. Total face to face time:: 15 Mental Status Exam - Mental Status Exam Alert and Oriented to: Time, Place, Person Cognitive Function: Good Patient Appearance: Well Groomed Mood: Hopeful Affect: Appropriate, Mood Congruent Patient Behavior: Appropriate, Cooperative Speech Pattern: Clear, Appropriate Voice Loudness: Normal Thought Process: Intact, Goal Oriented Thought Disorder: Not Present Hallucinations: None, Denies Suicidal Ideation: None, Denies Homicidal Ideation: None, Denies Insight/Judgement: Good Sleep: Well Appetite: Good Muscle strength/Tone: Normal Gait/Station: Normal Psychiatric Treatment Plan - Problem List (1) Alcohol dependence Current Visit: Yes (2) Cocaine dependence Current Visit: No Qualifiers: Substance use status: with unspecified cocaine-induced disorder Qualified Code(s): F14.29 - Cocaine dependence with unspecified cocaine-induced disorder (3) Opioid dependence on agonist therapy Current Visit: No (4) Bipolar 1 disorder Current Visit: Yes
[2017-07-11] MEDS: PRENATAL VITAMINS W/ FOLIC ACID TABLET (FP) PO SCH (09:52)
[2017-07-11] MEDS: CEPHALEXIN MONOHYDRATE 500 MG CAPSULE (UD) PO SCH (09:53)
[2017-07-11] MEDS: IBUPROFEN 400 MG TABLET (FP) PO PRN (10:20)
== END 2017-07-11 10:45 | disposition home or self-care (01) | DRG 772 ==
LOC: YASAS 13:11 → Y5N 13:12
PROVIDERS: ADMIT Psychiatry & Neurology Psychiatry; ATTEND Psychiatry & Neurology Psychiatry
PROC: HZ42ZZZ Group Counseling for Substance Abuse Treatment, Cognitive-Behavioral (ICD-10-PCS; principal; 2017-06-26)
DX: F10.20 Alcohol dependence, uncomplicated (principal); F11.20 Opioid dependence, uncomplicated; F14.29 Cocaine dependence with unspecified cocaine-induced disorder; F31.89 Other bipolar disorder; H60.02 Abscess of left external ear; S00.01XA Abrasion of scalp, initial encounter; X58.XXXA Exposure to other specified factors, initial encounter; Y93.89 Activity, other specified; Y92.239 Unspecified place in hospital as the place of occurrence of the external cause